=== PATIENT | female | born 1995 | race Caucasian/White ===

== ENCOUNTER 2021-07-20 07:43 | Inpatient (IN) | payer BC ==
[~2021-07-20] VITALS: Ht 167.6 cm; Wt 102.7 kg
[2021-07-21] VITALS (49 sets, daily range): BP systolic 116–160; BP diastolic 63–108; PULSE 61–135; TEMP 98–99.1
--- NOTE | 2021-07-21 06:15 | NUR ---
Patient ambulatory to LR4 with spouse, changed into gown, FHR/TOCO monitors placed and explained. Patient here for scheduled induction. Patient denies any regular contractions, leaking of fluid, vaginal bleeding, or decreased movement. Plan of care disucssed. 0640: IV started in right upper arm per Jesus PEREZ, blood obtained and to lab, flushed. Assessments completed, consents signs, packet. 0649: Pitocin induction discussed and patient agrees with plan. Pitocin started at 2mU/hr per protocol.
[2021-07-21] MEDS ORDERED: PRENATAL TABLET PO (06:57)
[2021-07-21] MEDS ORDERED: PROBIOTIC BLEN1 EACH PO (06:58)
--- NOTE | 2021-07-21 07:40 | NUR ---
Dr. Maynard at bedside assessing patient and FHR strip. 0745: SVE per physician / and AROM at this time with clear fluid noted. Patient tolerates well. Plan of care discussed.
[2021-07-21 07:44] LABS: HEMOGLOBIN 12.5 g/dl (12.5-16.0); MEAN CELL VOLUME 92 fl (80.0-100.0); MEAN CORPUSCULAR HEMOGLOBIN 31 pg (27-31); MEAN CORPUSCULAR HGB CONC 34 g/dl (33.0-37.0); MEAN PLATELET VOLUME 10.7 fl (7.4-10.4); PLATELET COUNT 281 K/mm3 (130-400); RED BLOOD COUNT 4.02 M/mm3 (4.10-5.30); REDCELL DISTRIBUTION WIDTH-CV 12.8 % (11.5-14.5)
[2021-07-21 07:49] LABS: HEMATOCRIT 36.8 % (37.0-47.0)
[2021-07-21 08:04] LABS: BAND 4 % (0-10); EOSINOPHIL 1 % (0-4); LYMPHOCYTE 21 % (20.0-51.0); NEUTROPHILS 66 % (42.0-75.2); PLATELET ESTIMATE NORMAL (NORMAL)
--- NOTE | 2021-07-21 11:40 | NUR ---
Dr. Maynard at bedside assessing patient and FHR strip. SVE per physician / and IUPC explained and placed.
--- NOTE | 2021-07-21 11:55 | NUR ---
IUPC tracing baseline offscale his RN attmepting to zero pressure. 1220: Patient requesting epidural and Quincy Romero CRNA called and notified. 1225: Quincy Romero CRNA updated on patinet complication listed as chiari malformation. Parth CANE SPLICER to bedside to discuss the high risks with getting epidural due patient having intermittent recurring symptoms. Parth CANE SPLICER refusing to place epidural. Plan of care discussed and patient verbalizes understanding. Patient given plan of IV pain medication when needed. 1302: Patient up to [employer]. 1310: IUPC pressure off scale and no longer tracing contractions. 1314: Patient stands from ball and IUPC falls out. TOCO placed on abdomen at this time, patient continues to sit on [employer] ball.
--- NOTE | 2021-07-21 13:04 | NUR ---
1227 ANESTHESIA IN THE ROOM TO DISCUSS EPIDURAL PLACEMENT.
--- NOTE | 2021-07-21 16:11 | NUR ---
1534 PT BREATHING THROUGH COTXS. ASKS FOR PAIN MEDICATION AT THIS TIME.
--- NOTE | 2021-07-21 17:21 | NUR ---
1703 PT UP TO BATHROOM COMPLAINS OF NEED TO VOID. PT REMAINS ON THE TOILET AT THIS TIME STATING "I CANT GET THE PEE TO COME OUT"
--- NOTE | 2021-07-21 20:30 | NUR ---
Pt with continued urge to push, involuntarily pushing, grunting and groaning with ctx. Psotioning self side to side for comfort.
--- NOTE | 2021-07-21 21:00 | NUR ---
SVE ant rim. pushing involuntarily.
--- NOTE | 2021-07-21 21:08 | NUR ---
Dr trivedi into room. SVE complete. Dr Trivedi coaches pushing. EFM ? tracing maternal heart rate, SPO2 monitor has slipped off during pushing. 2114 Dr trivedi out of room, to L&D desk,watching EFM. Pt pushing well. 2124 Dr trivedi into room. Pt prepped for delivery 2129 of male after reduction of nuchal cord x 1, by Dr Trivedi.
--- NOTE | 2021-07-21 21:37 | NUR ---
Placenta delivers. Pitocin gtt to bolus rate. Large amount free flow. straight cath by Dr Maynard with return large amount concentrated urine. Lochia continues heavy, bimalnual exam by Dr Maynard yields several clots. Fundal massage by this RN doesn't firm uterus and lochia with large gush and clots. 2139 Methergine 0.2mg to LAT. [address] Maynard repeat bimanual exam, again yielding small clots. 2147 Hemabate 250mcg to RAT.
--- NOTE | 2021-07-21 22:00 | NUR ---
perineal repair complete, lochia minimal, pericare complete, ice pack to perineum, bed together.
[2021-07-21] MEDS ORDERED: MOTRIN 800800 MG/TAB PO (22:59)
--- NOTE | 2021-07-21 23:50 | NUR ---
IV to INT, up to bathroom with steady gait. Voids large amount, performs own pericare, ice pack, clean gown on. Ambulates to postparum room.
[2021-07-22 03:05] VITALS: BP 125/64; PULSE 87; TEMP 98.3
[2021-07-22 07:05] VITALS: BP 130/67; PULSE 78; TEMP 97.9
[2021-07-22 16:48] VITALS: BP 120/64; PULSE 76; TEMP 97.9
[2021-07-22 20:25] VITALS: BP 109/60; PULSE 74; TEMP 98.4
[2021-07-23 08:40] VITALS: BP 114/71; PULSE 67; TEMP 97.8
--- NOTE | 2021-07-23 10:59 | NUR ---
Initial visit; Nurse with family, Acet[employer] Burner left card of congratulations and God's blessings for the of their son and information regarding the availability of [facility] at our [facility].
== END 2021-07-23 10:25 | disposition home or self-care (01) | DRG 806 ==
LOC: OB 07-21 06:04 → LDR 07-21 06:04 → OB 07-22 00:40
PROVIDERS: ADMIT Obstetrics & Gynecology
PROC: 10E0XZZ Delivery of Products of Conception, External Approach (ICD-10-PCS; principal; 2021-07-21)
PROC: 0KQM0ZZ Repair Perineum Muscle, Open Approach (ICD-10-PCS; 2021-07-21)
PROC: 3E033VJ Introduction of Other Hormone into Peripheral Vein, Percutaneous Approach (ICD-10-PCS; 2021-07-21)
PROC: 10907ZC Drainage of Amniotic Fluid, Therapeutic from Products of Conception, Via Natural or Artificial Opening (ICD-10-PCS; 2021-07-21)
DX: O36.63X0 Maternal care for excessive fetal growth, third trimester, not applicable or unspecified (principal); O72.1 Other immediate postpartum hemorrhage; Z37.0 Single live birth; O70.1 Second degree perineal laceration during delivery; O69.81X0 Labor and delivery complicated by cord around neck, without compression, not applicable or unspecified; Z3A.39 39 weeks gestation of pregnancy
CPT/HCPCS: J0595; J2210; J2590; J7120

== ENCOUNTER → 2023-02-23 | Outpatient (CLI) | payer BC ==
[~2023-02-23] MED LIST: MOTRIN 800800 MG/TAB PO; PRENATAL TABLET PO; PROBIOTIC BLEN1 EACH PO
== END ==
LOC: COL.RAD 08:32
DX: M50.322 Other cervical disc degeneration at C5-C6 level (principal); G93.5 Compression of brain; G95.0 Syringomyelia and syringobulbia